=== PATIENT | female | born 1945 | race Caucasian/White ===

== ENCOUNTER → 2019-08-21 10:28 | Outpatient (CLI) | payer MEDICARE, SELFPAY ==
--- NOTE | ~2019-08-21 | DEXA_ITS ---
Bone Density Report Name: Janice Barnes Age: 74 Sex: Female Ethnicity: White Date of : 1945 Indication: osteopenia; monitoring treatment; parental hip fracture; height loss; cancer; postmenopausal Referring Provider: Ab, Manoj Garay Study: Bone densitometry was performed. Exam Date: August 21, 2019 Accession number: [id number] Bone Density: Region BMD T-score Z-score Classification AP Spine (L1-L4) 0.872 -1.6 0.8 Osteopenia Femoral Neck (Left) 0.604 -2.2 -0.1 Osteopenia Total Hip (Left) 0.791 -1.2 0.6 Osteopenia Femoral Neck (Right) 0.559 -2.6 -0.5 Osteoporosis Total Hip (Right) 0.748 -1.6 0.2 Osteopenia Total Hip Mean 0.770 -1.4 0.4 Osteopenia World Health Organization criteria for BMD impression classify patients as: Normal (T-score at or above -1.0), Osteopenia (T-score between -1.0 and -2.5), or Osteoporosis (T-score at or below -2.5). 10-year Fracture Risk: FRAX not reported because: Some T-score for Spine Total or Hip Total or Femoral Neck at or below -2.5 Treated for osteoporosis Previous Exams: Region Exam Age BMD T-score BMD Change BMD Change Date g/cm2 vs Baseline vs Previous AP Spine(L1-L4) 08/21/2019 74 0.872 -1.6 -0.007 -0.005 05/27/2017 71 0.877 -1.5 -0.002 -0.016 05/22/2015 69 0.893 -1.4 0.014 0.008 01/11/2013 67 0.885 -1.5 0.007 0.009 08/11/2010 65 0.876 -1.6 -0.002 0.047* 10/03/2008 63 0.829 -2.0 -0.050* -0.032* 01/17/2007 61 0.861 -1.7 -0.018 -0.018 06/10/2004 59 0.879 -1.5 Total Hip(Left) 08/21/2019 74 0.791 -1.2 -0.052* -0.020 05/27/2017 71 0.811 -1.1 -0.032* 0.003 05/22/2015 69 0.807 -1.1 -0.036* 0.031* 01/11/2013 67 0.776 -1.4 -0.067* -0.003 08/11/2010 65 0.779 -1.3 -0.064* -0.020 10/03/2008 63 0.799 -1.2 -0.044* 0.006 01/17/2007 61 0.794 -1.2 -0.050* -0.050* 06/10/2004 59 0.843 -0.8 Total Hip(Right) 08/21/2019 74 0.748 -1.6 -0.063* -0.044* 05/27/2017 71 0.792 -1.2 -0.019 0.008 05/22/2015 69 0.784 -1.3 -0.028* 0.004 01/11/2013 67 0.779 -1.3 -0.032* 0.055* 08/11/2010 65 0.724 -1.8 -0.087* -0.013 10/03/2008 63 0.737 -1.7 -0.074* -0.005 01/17/2007 61 0.743 -1.6 -0.068* -0.068* 06/10/2004 59 0.811 -1.1
== END ==
PROVIDERS: PCP Internal Medicine; Visit Provider Internal Medicine
DX: M81.0 Age-related osteoporosis without current pathological fracture (principal); M85.88 Other specified disorders of bone density and structure, other site
CPT/HCPCS: 77080